=== PATIENT | male | born 1985 | race Caucasian/White ===

== ENCOUNTER → 2018-05-26 12:03 | Outpatient (CLI) | payer OTHER, SELFPAY ==
[2018-05-26 13:19] LABS: Add Manual Diff / Slide Review NO; Basophils Percent Auto 0.5 % (0-2); Eosinophils Percent Auto 0.7 % (2-4); Hematocrit 41.5 % (41-53); Lymphocytes Percent Auto 21.8 % (25-40); Mean Corpuscular HGB Conc 33.8 % (30-36); Mean Corpuscular Hemoglobin 29.6 PG (26-34); Mean Corpuscular Volume 87.6 fL (80-100); Monocytes Percent Auto 9.1 % (3-14); Neutrophils Absolute Auto 4200 /uL (3000-5900); Neutrophils Percent Auto 67.9 % (50-75); Platelet Count 133 X10^3/uL (150-400); Red Blood Cell Count 4.74 X10^6/uL (4.5-5.9); Red Cell Distribution Width 13.6 % (11.6-14.8); White Blood Cell Count 6.2 X10^3/uL (4.5-11.0)
[2018-05-26 13:43] LABS: Alanine Aminotransferase 35 IU/L (21-72); Albumin 4.6 g/dL (3.5-5.0); Albumin Globulin Ratio 1.6 (1.0-2.8); Alkaline Phosphatase 31 U/L (38-126); Aspartate Aminotransferase 28 IU/L (17-59); Bilirubin Total 0.7 mg/dL (0.2-1.3); Blood Urea Nitrogen 11 mg/dL (9-20); Carbon Dioxide 29 mmol/L (22-32); Chloride 100 mmol/L (98-107); Estimated Glomerular Filt Rate > 60.0 mL/min (>60); Globulin 2.8 g/dL (1.7-4.1); Glucose 98 mg/dL (70-100); HEMOLYSIS < 15 (0-50); Potassium 3.8 mmol/L (3.4-5.1); Sodium 140 mmol/L (137-145); Total Protein 7.4 g/dL (6.3-8.2)
== END ==
PROVIDERS: PCP Internal Medicine; Visit Provider Internal Medicine
DX: F10.10 Alcohol abuse, uncomplicated (principal)
CPT/HCPCS: 36415; 80053; 85025

== ENCOUNTER → 2021-02-12 13:08 | Outpatient (CLI) | payer OTHER, SELFPAY ==
[2021-02-12] MEDS: COVID-19 VACC #1, MRNA(MOD) 100 MCG/0.5 ML VIAL IM (13:25)
== END ==
PROVIDERS: PCP Internal Medicine; Visit Provider Internal Medicine
DX: Z23 Encounter for immunization (principal)
CPT/HCPCS: 0011A; 91301

== ENCOUNTER → 2021-03-12 13:00 | Outpatient (CLI) | payer OTHER, SELFPAY ==
[2021-03-12] MEDS: COVID-19 VACC #2, MRNA(MOD) 100 MCG/0.5 ML VIAL IM (13:05)
== END ==
PROVIDERS: PCP Internal Medicine; Visit Provider Internal Medicine
DX: Z23 Encounter for immunization (principal)
CPT/HCPCS: 0012A; 91301

== ENCOUNTER → 2025-02-21 15:55 | Outpatient (CLI) | payer OTHER, SELFPAY ==
--- NOTE | 2025-02-22 15:16 | DIET.OUTPTC ---
Dietary Outpatient Consultation Note Consultation Date: 02/21/2025 Assessment: 39 y M referred to dietitian for alcohol use disorder. Pt wanting to review current nutritional intake and discuss adding calories to replace alcohol calories. Following low carb diet plan. Feels energized on this and would like to continue it. Reports working to wean alcohol intake and alcohol comprises of 4060-5149 total caloric intake. Pt has been loosing weight since started to eat healthier and reduce drinking last May. Has gone from 190-200 lb to 165 lb now (-13-17% weight loss in 1 yr) Does 3 days strength workout and 6 days walking/running for 30-45 minutes. No lab values in referral, but pt notes high cholesterol. Report daily BMs. Diet recall: B-Fruit and veg smoothie with ulises and coconut milk, eggs and toast L-sandwich/big green and veg salad with 6 oz chx/fish D-same as above Keto friendly snacks cooks with olive oil or avocado takes a tummeric/elizabeth/mushroom supplement in the smoothie Ht: - Wt: 165 lb Nutrition Diagnosis: Excessive alcohol intake r/t hx of alcohol use disorder aeb pt reports consuming 4761-4600 kcals of alcohol but is moving away from alcohol consumption Interventions: Discussed the following: -Saturated fat and fiber on low carb diet -Label reading for saturated fats -Balanced meals and snacks in line with, Mediterranean style of eating adjusting for low carb -Lab values and correlation with nutrition -Brainstormed appropriate meal plan based on food preferences -Offered to help connect pt to support services/resources for alcohol use disorder, pt declines at this time Goals: Consistent meals with decrease in alcohol intake and additional snacks/add ons for weight maintenance to meals such as yogurt parfait, added healthy fat (i.e avocado with eggs and toast), extra fruit, nuts and seeds or beans Monitor saturated fats on keto snacks using label reading guide Impressions: pt knowledgeable about food and nutrition, knows food options he wants to include as he decreases drinking Monitoring/Evaluations: f/u PRN Electronically Signed by: Larisa Penn 02/22/25 15:16 Clinical Dietitian [address] [id number]
== END ==
PROVIDERS: PCP Physician Assistant; Referring Provider Physician Assistant
DX: F10.90 Alcohol use, unspecified, uncomplicated (principal); Z71.3 Dietary counseling and surveillance
CPT/HCPCS: 97802